=== PATIENT | male | born 2000 | race Caucasian/White ===

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

== ENCOUNTER 2023-02-06 07:55 | Emergency (ER) | payer SELFPAY ==
[~2023-02-06] VITALS: Ht 193 cm; Wt 113.4 kg
[2023-02-06 08:14] VITALS: BP 121/77
[2023-02-06] MEDS ORDERED: AVPAK AZITHROM250 M1 PO (09:59)
== END 2023-02-06 10:13 | disposition home or self-care (01) ==
LOC: ED 07:55
DX: J32.9 Chronic sinusitis, unspecified (principal); H92.03 Otalgia, bilateral; F90.9 Attention-deficit hyperactivity disorder, unspecified type; Z98.890 Other specified postprocedural states; F17.290 Nicotine dependence, other tobacco product, uncomplicated; Z20.822 Contact with and (suspected) exposure to COVID-19

== ENCOUNTER 2023-09-11 00:39 | Emergency (ER) | payer SELFPAY ==
[~2023-09-11] VITALS: Ht 193 cm; Wt 120.2 kg
[~2023-09-11 00:39] MED LIST changes: +AVPAK AZITHROM250 M1 PO
[2023-09-11 00:45] VITALS: BP 142/87
== END 2023-09-11 02:21 | disposition left against medical advice (07) ==
LOC: ED 00:39
DX: L60.0 Ingrowing nail (principal); F90.9 Attention-deficit hyperactivity disorder, unspecified type; Z53.29 Procedure and treatment not carried out because of patient's decision for other reasons; Z98.890 Other specified postprocedural states

== ENCOUNTER 2023-09-15 17:35 | Emergency (ER) | payer SELFPAY ==
[~2023-09-15] VITALS: Ht 193 cm; Wt 120.2 kg
[2023-09-15 18:00] VITALS: BP 114/87
[2023-09-15] MEDS ORDERED: IOHEXOL 300 MG/ML 100 ML VIAL IV ONE (19:00)
[2023-09-15 19:04] LABS: BASO % 0.3 % (0.0-1.0); EOS # 0.3 10*3/uL (0.0-0.4); EOS % 3.4 % (1.0-4.0); HEMATOCRIT 45.5 % (42.0-52.0); LYMPH # 1.8 10*3/uL (1.3-4.4); LYMPH % 18.6 % (27.0-41.0); MEAN CELL VOLUME 85.7 fl (80.0-94.0); MEAN CORPUSCULAR HGB 29.2 pg (27.0-31.0); MEAN CORPUSCULAR HGB CONC 34.1 g/dl (33.0-37.0); MEAN PLATELET VOLUME 8.8 fl (9.6-12.3); MONO # 0.6 10*3/uL (0.1-1.0); MONO % 6.8 % (3.0-9.0); NEUT # 6.7 10*3/uL (2.3-7.9); NEUT % 70.7 % (47.0-73.0); PLATELET COUNT AUTOMATED 312 10*3/uL (130-400); RED BLOOD COUNT 5.31 10*6/uL (4.50-5.90); RED CELL DISTRI WIDTH 12.6 % (0-14.5); WHITE BLOOD COUNT 9.5 10*3/uL (4.8-10.8)
[2023-09-15] MEDS ORDERED: hydrOXYzine pamoate 25 MG CAP PO ONE (19:10)
[2023-09-15 19:24] LABS: ALKALINE PHOSPHATASE 126 U/L (46-116); BUN 7 mg/dl (9-23); CHLORIDE 105 mmol/L (98-107); POTASSIUM 3.7 mmol/L (3.4-5.1); SGPT/ALT 39 U/L (5-49); TOTAL PROTEIN 7.9 gm/dL (6.0-8.0)
[2023-09-15] MEDS ORDERED: AMOX-CLAV 875-1 EACH PO (23:18)
[2023-09-15] MEDS ORDERED: Amoxicillin/Clavulanate Pota 875 MG TAB PO ONE (23:20)
== END 2023-09-15 23:20 | disposition home or self-care (01) ==
LOC: ED 17:35
PROVIDERS: Internal Medicine
DX: L03.213 Periorbital cellulitis (principal); Z79.2 Long term (current) use of antibiotics

== ENCOUNTER 2024-07-14 03:02 | Emergency (ER) | payer OTHER ==
[~2024-07-14] VITALS: Ht 193 cm; Wt 120.2 kg
[~2024-07-14 03:02] MED LIST changes: +AMOX-CLAV 875-1 EACH PO
[2024-07-14] MEDS ORDERED: diphenhydrAMINE hydrochloride 50 MG/ML VIAL IM ONE (03:05)
[2024-07-14] MEDS ORDERED: Dexamethasone Sodium Phospha 20 MG/5 ML VIAL IM ONE (03:05)
[2024-07-14] MEDS ORDERED: PREDNISONE50 MG PO (03:06)
[2024-07-14 03:10] VITALS: BP 128/78
== END 2024-07-14 03:17 | disposition home or self-care (01) ==
LOC: ED 03:02
DX: L25.9 Unspecified contact dermatitis, unspecified cause (principal)

== ENCOUNTER 2024-12-31 02:37 | Emergency (ER) | payer OTHER ==
[~2024-12-31] VITALS: Ht 193 cm; Wt 120.2 kg
[~2024-12-31 02:37] MED LIST changes: +PREDNISONE50 MG PO
[2024-12-31 02:44] VITALS: BP 128/78
[2024-12-31] MEDS ORDERED: AMOX-CLAV 875-1 EACH PO (02:57)
== END 2024-12-31 03:07 | disposition home or self-care (01) ==
LOC: ED 02:37
DX: H66.92 Otitis media, unspecified, left ear (principal); F90.9 Attention-deficit hyperactivity disorder, unspecified type